=== PATIENT | female | born 1950 | race Caucasian/White ===

== ENCOUNTER 2021-09-30 08:09 | Inpatient (IN) ==
[2021-09-30] MEDS ORDERED: Artificial Tears SOLN 15 ML BOTTLE BOTH EYES PRN (12:56)
[2021-09-30] MEDS ORDERED: Naloxone 0.4 MG/ML INJ IVP PRN (12:56)
[2021-09-30] MEDS ORDERED: Perflutren Lipid Microsphere 1.3 ML in 0.9 % Sodium Chloride 8.7 ML IVP PRN (12:56)
[2021-09-30] MEDS ORDERED: Acetaminophen 325 MG TABLET PO PRN (12:56)
[2021-09-30] MEDS: FentaNYL (PF) 1,000 MCG/100 ML IV.SOLN IVC SCH (13:45)
[2021-09-30 13:47] LABS: ABG Base Excess 13 mEq/L (-2 to 3); ABG HCO3 36 mEq/L (21-27); ABG Oxygen Saturation 98 % (95-98); ABG PCO2 36 mmHg (35-45); ABG PH 7.61 pH Units (7.32-7.45); ABG PO2 88 mmHg (85-104); ABG TCO2 37 mEq/L (20-26); Blood Gas Modality ASSIST CONTROL; Blood Gas VT 450 cc
[2021-09-30] MEDS: Pantoprazole 40 MG VIAL IVP SCH (14:18)
[2021-09-30] MEDS ORDERED: *HR* Heparin 5,000 UNIT/ML VIAL IVP PRN ×2 (14:19)
[2021-09-30] MEDS: Dexmedetomidine HCl 400 MCG/100 ML MLS IVC SCH ×2 (14:23→22:25)
[2021-09-30 14:30] LABS: Red Cell Distribution Width 16.4 % (11.5-14.5)
[2021-09-30 14:32] LABS: Hematocrit 27.9 % (35.3-44.9); Hemoglobin 8.2 g/dL (11.5-15.4); Mean Corpuscular HGB Conc 29.4 g/dL (31.6-35.5); Mean Corpuscular Hemoglobin 24.8 pg (28.0-33.3); Mean Corpuscular Volume 84.5 fL (83.0-100.0); Mean Platelet Volume 9.4 fL (9.4-12.4); Platelet Count 242 K/mcL (140-400)
[2021-09-30 14:34] LABS: INR 1.5; Prothrombin Time 16.7 Seconds (9.4-12.1)
[2021-09-30 14:37] LABS: Activated Partial Thrombo Time 29.6 Seconds (26.0-36.0)
[2021-09-30 14:59] LABS: Albumin/Globulin Ratio 1.5 (1.1-2.2); Bilirubin,Direct 0.2 mg/dL (0.0-0.2); Bilirubin,Indirect 0.5 mg/dL (0.0-1.0); Bilirubin,Total 0.7 mg/dL (0.3-1.0); Calcium 8.3 mg/dL (8.6-10.3); Magnesium 1.7 mg/dL (1.6-2.6); Phosphorous 2.6 mg/dL (2.7-4.5); Potassium 3.3 mEq/L (3.5-5.1)
[2021-09-30 15:05] LABS: Hypochromasia Present (Not Present); Lymphocytes # 0.6 K/mcL (0.6-4.6); Monocytes # 0.6 K/mcL (0.0-1.3); Neutrophils # 28.8 K/mcL (1.6-8.9); Platelet Estimate Normal (Normal)
[2021-09-30 15:11] LABS: ABG Base Excess 13 mEq/L (-2 to 3); ABG HCO3 37 mEq/L (21-27); ABG Oxygen Saturation 99 % (95-98); ABG PCO2 42 mmHg (35-45); ABG PH 7.55 pH Units (7.32-7.45); ABG PO2 114 mmHg (85-104); ABG TCO2 38 mEq/L (20-26); Blood Gas Modality ASSIST CONTROL; Blood Gas VT 450 cc
[2021-09-30] MEDS: Heparin 25,000 UNIT/250 ML 25,000 UNIT/250 ML IV.SOLN IVC SCH (15:11)
[2021-09-30 15:59] LABS: Bilirubin,Urine Negative (Negative); Blood,Urine Large (Negative); Clarity,Urine Ex.Turbid (Clear); Color,Urine Yellow (Yellow); Glucose,Urine (UA) 30 mg/dL (Normal); Ketones,Urine Negative (Negative); Leukocyte Esterase,Urine Large (Negative); Nitrite,Urine Negative (Negative); Protein,Urine >=300 mg/dL (Neg-Trace); Specific Gravity,Urine 1.021 (1.010-1.025); Urobilinogen,Urine Normal (Normal)
[2021-09-30] MEDS ORDERED: *HR* Heparin 5,000 UNIT/ML VIAL SQ SCH (16:00)
[2021-09-30 16:25] LABS: Bacteria,Urine Many per hpf (None-Few); Renal Epithelial Cells,Urine Few per hpf (None-Few); Transitional Epi Cells,Urine Few per hpf (None-Few); WBC,Urine TNTC per hpf (0-3); Waxy Casts,Urine Few per lpf (None Seen)
[2021-09-30 16:26] LABS: Hyaline Casts,Urine Few per lpf (None Seen); Squamous Epithelial Cell,Urine Few per hpf (None-Few); White Blood Cell Casts,Urine Few per lpf (None Seen)
[2021-09-30 16:27] LABS: RBC,Urine 30-50 per hpf (0-3)
[2021-09-30] MEDS ORDERED: Vancomycin 1,750 MG in 0.9 % Sodium Chloride 250 ML IVPB SCH (17:00)
[2021-09-30] MEDS ORDERED: D5% in Water 1,000 ML IVC PRN (17:06)
[2021-09-30] MEDS ORDERED: Dextrose Gel 15 GM/37.5 ML TUBE PO PRN ×2 (17:06)
[2021-09-30] MEDS: Piperacillin/Tazobactam 3.375 GM in 0.9 % Sodium Chloride Mini Bag 100 ML IVPB SCH (17:12)
[2021-09-30] MEDS: Artificial Tears SOLN 15 ML BOTTLE BOTH EYES SCH ×2 (17:12→20:31)
[2021-09-30] MEDS: Insulin LISPRO 300 UNITS/3 ML VIAL SUBQ SCH (17:14)
[2021-09-30] MEDS ORDERED: Vancomycin 1,750 MG/517.5 ML IV.SOLN IVPB ONE (18:00)
[2021-09-30] MEDS: Albumin Human 5% 12.5 GM/250 ML IV.SOLN IVC SCH ×2 (18:31→22:23)
[2021-09-30] MEDS: Budesonide/Formoterol 160/4.5 1 PUFF INH IH SCH (20:17)
[2021-09-30] MEDS: Chlorhexidine Rinse 15 ML MOUTHWASH MM SCH (20:33)
[2021-09-30 21:59] LABS: Estimated Average Glucose 105 mg/dl; Hemoglobin A1C 5.3 %
[2021-10-01] MEDS: *HR* Dextrose 50 % in Water (Syg) 50 ML SYRINGE IVP PRN ×2 (01:34→20:50)
[2021-10-01] MEDS: Artificial Tears SOLN 15 ML BOTTLE BOTH EYES SCH ×7 (01:38→23:54)
[2021-10-01] MEDS: Piperacillin/Tazobactam 3.375 GM in 0.9 % Sodium Chloride Mini Bag 100 ML IVPB SCH ×4 (01:39→23:53)
[2021-10-01] MEDS: FentaNYL (PF) 1,000 MCG/100 ML IV.SOLN IVC SCH (02:07)
[2021-10-01 03:40] LABS: Basophils % 0.2 %; Eosinophils % 0.1 %; Hematocrit 24.5 % (35.3-44.9); Hemoglobin 7.5 g/dL (11.5-15.4); Immature Granulocytes % 1.4 % (0-4); Lymphocytes # 0.9 K/mcL (0.6-4.6); Lymphocytes % 4.2 %; Mean Corpuscular HGB Conc 30.6 g/dL (31.6-35.5); Mean Corpuscular Hemoglobin 25.2 pg (28.0-33.3); Mean Corpuscular Volume 82.2 fL (83.0-100.0); Mean Platelet Volume 9.5 fL (9.4-12.4); Monocytes # 1.2 K/mcL (0.0-1.3); Monocytes % 5.4 %; Neutrophils # 19.6 K/mcL (1.6-8.9); Platelet Count 206 K/mcL (140-400); Red Blood Count 2.98 M/mcL (3.82-4.97); Red Cell Distribution Width 16.7 % (11.5-14.5); Segmented Neutrophils % 88.7 %; White Blood Count 22.1 K/mcL (4.3-11.1)
[2021-10-01 03:55] LABS: Albumin/Globulin Ratio 1.7 (1.1-2.2); Bilirubin,Direct 0.3 mg/dL (0.0-0.2); Bilirubin,Indirect 0.7 mg/dL (0.0-1.0); Calcium 7.8 mg/dL (8.6-10.3); Globulin 1.8 g/dL (2.4-3.5); Magnesium 1.6 mg/dL (1.6-2.6); Phosphorous 2.9 mg/dL (2.7-4.5); Potassium 3.2 mEq/L (3.5-5.1); Total Protein 4.8 g/dL (6.4-8.9)
[2021-10-01 04:14] LABS: ABG Base Excess 14 mEq/L (-2 to 3); ABG HCO3 37 mEq/L (21-27); ABG Oxygen Saturation 98 % (95-98); ABG PCO2 41 mmHg (35-45); ABG PH 7.57 pH Units (7.32-7.45); ABG PO2 88 mmHg (85-104); ABG TCO2 38 mEq/L (20-26); Blood Gas VT 450 cc
[2021-10-01] MEDS ORDERED: Potassium Chloride Elixir 20 MEQ/15 ML UDC GTUBE ONE (04:56)
[2021-10-01] MEDS: Calcium Gluconate 1gm/50mL 1 GM/50 ML BAG IVPB SCH ×2 (05:12→05:39)
[2021-10-01] MEDS: Heparin 25,000 UNIT/250 ML 25,000 UNIT/250 ML IV.SOLN IVC SCH ×2 (06:06→08:11)
[2021-10-01] MEDS: Budesonide/Formoterol 160/4.5 1 PUFF INH IH SCH ×2 (07:31→20:39)
[2021-10-01] MEDS: Insulin LISPRO 300 UNITS/3 ML VIAL SUBQ SCH ×3 (08:11→16:46)
[2021-10-01] MEDS: Chlorhexidine Rinse 15 ML MOUTHWASH MM SCH ×2 (08:12→21:25)
[2021-10-01] MEDS: Pantoprazole 40 MG VIAL IVP SCH (08:13)
[2021-10-01 10:53] LABS: VBG Ionized Calcium 1.08 mmol/L (1.15-1.35)
[2021-10-01 11:04] LABS: Phosphorous 4.1 mg/dL (2.7-4.5); Potassium 4.3 mEq/L (3.5-5.1)
[2021-10-01] MEDS ORDERED: Calcium Gluconate 1gm/50mL 1 GM/50 ML BAG IVPB ONE (16:37)
[2021-10-01 22:55] LABS: Creatinine,Urine 71 mg/dL; Microalbumin,Urine > 1350 mg/L; Protein/Creatinine Ratio,Urine 6.99 mg/mg (0.00-0.20); Sodium, Urine 59.3 mEq/L
[2021-10-01] MEDS: Dexmedetomidine HCl 400 MCG/100 ML MLS IVC SCH (23:54)
[2021-10-02] MEDS: Artificial Tears SOLN 15 ML BOTTLE BOTH EYES SCH ×4 (03:11→16:07)
[2021-10-02 04:11] LABS: Basophils # 0.1 K/mcL (0.0-0.2); Basophils % 0.3 %; Eosinophils # 0.4 K/mcL (0.0-0.6); Eosinophils % 2.6 %; Hematocrit 24.8 % (35.3-44.9); Hemoglobin 7.2 g/dL (11.5-15.4); Immature Granulocytes % 0.4 % (0-4); Lymphocytes # 1.2 K/mcL (0.6-4.6); Lymphocytes % 7.2 %; Mean Corpuscular Hemoglobin 24.3 pg (28.0-33.3); Mean Corpuscular Volume 83.8 fL (83.0-100.0); Monocytes % 6.1 %; Neutrophils # 13.4 K/mcL (1.6-8.9); Platelet Count 187 K/mcL (140-400); Red Blood Count 2.96 M/mcL (3.82-4.97); Red Cell Distribution Width 17.2 % (11.5-14.5); Segmented Neutrophils % 83.4 %
[2021-10-02 04:34] LABS: Albumin 2.8 g/dL (3.5-5.7); Albumin/Globulin Ratio 1.4 (1.1-2.2); Bilirubin,Direct 0.2 mg/dL (0.0-0.2); Bilirubin,Indirect 0.3 mg/dL (0.0-1.0); Bilirubin,Total 0.5 mg/dL (0.3-1.0); Calcium 7.8 mg/dL (8.6-10.3); Magnesium 2.1 mg/dL (1.6-2.6); Phosphorous 5.8 mg/dL (2.7-4.5); Potassium 3.7 mEq/L (3.5-5.1); Total Protein 4.8 g/dL (6.4-8.9)
[2021-10-02] MEDS: Heparin 25,000 UNIT/250 ML 25,000 UNIT/250 ML IV.SOLN IVC SCH (08:12)
[2021-10-02] MEDS: Budesonide/Formoterol 160/4.5 1 PUFF INH IH SCH ×2 (08:27→19:54)
[2021-10-02] MEDS: Piperacillin/Tazobactam 3.375 GM in 0.9 % Sodium Chloride Mini Bag 100 ML IVPB SCH ×2 (08:42→16:08)
[2021-10-02] MEDS: Pantoprazole 40 MG VIAL IVP SCH (08:42)
[2021-10-02] MEDS: Chlorhexidine Rinse 15 ML MOUTHWASH MM SCH (08:42)
[2021-10-02] MEDS: Insulin LISPRO 300 UNITS/3 ML VIAL SUBQ SCH ×2 (08:44→12:17)
[2021-10-02 08:56] LABS: Magnesium 2.1 mg/dL (1.6-2.6)
[2021-10-02] MEDS ORDERED: Dextrose Gel 15 GM/37.5 ML TUBE PO PRN ×2 (18:38)
[2021-10-02] MEDS ORDERED: D5% in Water 1,000 ML IVC PRN (18:38)
[2021-10-02] MEDS ORDERED: Naloxone 0.4 MG/ML INJ IVP PRN (18:38)
[2021-10-02] MEDS ORDERED: *HR* Dextrose 50 % in Water (Syg) 50 ML SYRINGE IVP PRN (18:38)
[2021-10-02] MEDS: *HR* HYDROcodone/Acet 5/325 mg TABLET PO PRN (20:22)
[2021-10-02] MEDS: *HR* Heparin 5,000 UNIT/ML VIAL SQ SCH (20:43)
[2021-10-03] MEDS: Acetaminophen 325 MG TABLET PO PRN ×2 (00:07→17:04)
[2021-10-03] MEDS: Piperacillin/Tazobactam 3.375 GM in 0.9 % Sodium Chloride Mini Bag 100 ML IVPB SCH ×3 (00:08→16:51)
[2021-10-03 04:57] LABS: Basophils % 0.3 %; Eosinophils % 3.3 %; Red Cell Distribution Width 17.1 % (11.5-14.5)
[2021-10-03 04:59] LABS: Eosinophils # 0.4 K/mcL (0.0-0.6); Hematocrit 26.1 % (35.3-44.9); Hemoglobin 7.5 g/dL (11.5-15.4); Immature Granulocytes % 0.6 % (0-4); Lymphocytes # 1.2 K/mcL (0.6-4.6); Lymphocytes % 9.6 %; Mean Corpuscular HGB Conc 28.7 g/dL (31.6-35.5); Mean Corpuscular Hemoglobin 24.9 pg (28.0-33.3); Mean Corpuscular Volume 86.7 fL (83.0-100.0); Mean Platelet Volume 9.8 fL (9.4-12.4); Monocytes % 8.1 %; Neutrophils # 9.8 K/mcL (1.6-8.9); Platelet Count 176 K/mcL (140-400); Red Blood Count 3.01 M/mcL (3.82-4.97); Segmented Neutrophils % 78.1 %; White Blood Count 12.5 K/mcL (4.3-11.1)
[2021-10-03] MEDS: *HR* HYDROcodone/Acet 5/325 mg TABLET PO PRN ×3 (05:03→21:50)
[2021-10-03] MEDS: *HR* Heparin 5,000 UNIT/ML VIAL SQ SCH ×3 (05:05→21:43)
[2021-10-03 05:18] LABS: Albumin 2.9 g/dL (3.5-5.7); Albumin/Globulin Ratio 1.4 (1.1-2.2); Bilirubin,Direct 0.2 mg/dL (0.0-0.2); Bilirubin,Indirect 0.2 mg/dL (0.0-1.0); Bilirubin,Total 0.4 mg/dL (0.3-1.0); Calcium 7.6 mg/dL (8.6-10.3); Globulin 2.1 g/dL (2.4-3.5); Magnesium 2.1 mg/dL (1.6-2.6); Phosphorous 5.8 mg/dL (2.7-4.5); Potassium 3.5 mEq/L (3.5-5.1)
[2021-10-03] MEDS: Budesonide/Formoterol 160/4.5 1 PUFF INH IH SCH (07:41)
[2021-10-03] MEDS: Insulin LISPRO 300 UNITS/3 ML VIAL SUBQ SCH ×2 (08:15→11:50)
[2021-10-03] MEDS ORDERED: Calcium Chloride 1,000 MG in 0.9 % Sodium Chloride 100 ML IVPB ONE (08:41)
[2021-10-03] MEDS: carvediloL 25 MG TABLET PO SCH ×2 (09:00→16:51)
[2021-10-03] MEDS ORDERED: Pantoprazole 40 MG VIAL IVP SCH (09:00)
[2021-10-03] MEDS ORDERED: Calcium Gluconate 1gm/50mL 1 GM/50 ML BAG IVPB SCH (09:30)
[2021-10-03 11:29] LABS: Complement C3 114 mg/dL (87-200)
[2021-10-03] MEDS: Calcium Gluconate 1gm/50mL 1 GM/50 ML BAG IVPB SCH ×2 (11:59→13:03)
[2021-10-03] MEDS: MethylPREDNISolone 40 MG/ML VIAL IVP SCH ×2 (13:30→16:52)
[2021-10-03] MEDS: Ipratropium/Albuterol Neb 3 ML IH SCH ×2 (15:32→21:57)
[2021-10-04] MEDS: Ipratropium/Albuterol Neb 3 ML IH SCH ×4 (03:40→19:53)
[2021-10-04] MEDS: Piperacillin/Tazobactam 3.375 GM in 0.9 % Sodium Chloride Mini Bag 100 ML IVPB SCH ×3 (03:55→20:03)
[2021-10-04 05:23] LABS: Basophils % 0.1 %; Mean Corpuscular Volume 87.5 fL (83.0-100.0)
[2021-10-04 05:24] LABS: Hematocrit 29.4 % (35.3-44.9); Immature Granulocytes % 0.9 % (0-4); Lymphocytes # 0.6 K/mcL (0.6-4.6); Lymphocytes % 7.8 %; Mean Corpuscular HGB Conc 27.2 g/dL (31.6-35.5); Mean Corpuscular Hemoglobin 23.8 pg (28.0-33.3); Mean Platelet Volume 9.9 fL (9.4-12.4); Monocytes # 0.1 K/mcL (0.0-1.3); Monocytes % 1.2 %; Neutrophils # 7.2 K/mcL (1.6-8.9); Platelet Count 192 K/mcL (140-400); Red Blood Count 3.36 M/mcL (3.82-4.97); Red Cell Distribution Width 16.3 % (11.5-14.5)
[2021-10-04] MEDS: MethylPREDNISolone 40 MG/ML VIAL IVP SCH ×2 (05:35→17:50)
[2021-10-04] MEDS: *HR* Heparin 5,000 UNIT/ML VIAL SQ SCH ×3 (05:35→20:08)
[2021-10-04] MEDS: *HR* HYDROcodone/Acet 5/325 mg TABLET PO PRN (05:36)
[2021-10-04 05:43] LABS: Albumin 3.2 g/dL (3.5-5.7); Albumin/Globulin Ratio 1.3 (1.1-2.2); Bilirubin,Direct 0.1 mg/dL (0.0-0.2); Bilirubin,Indirect 0.3 mg/dL (0.0-1.0); Bilirubin,Total 0.4 mg/dL (0.3-1.0); Calcium 8.6 mg/dL (8.6-10.3); Globulin 2.4 g/dL (2.4-3.5); Magnesium 2.2 mg/dL (1.6-2.6); Phosphorous 5.4 mg/dL (2.7-4.5); Potassium 4.2 mEq/L (3.5-5.1); Total Protein 5.6 g/dL (6.4-8.9)
[2021-10-04 05:54] LABS: Hypochromasia Present (Not Present)
[2021-10-04 05:55] LABS: Platelet Estimate Normal (Normal)
[2021-10-04] MEDS: Venlafaxine XR (24 HR) 75 MG CAP.ER.24H PO SCH (08:44)
[2021-10-04] MEDS: carvediloL 25 MG TABLET PO SCH ×2 (08:44→17:50)
[2021-10-04] MEDS ORDERED: *HR* Metoprolol 5 MG/5 ML VIAL IVP ONE (19:23)
[2021-10-05] MEDS: Ipratropium/Albuterol Neb 3 ML IH SCH ×4 (04:01→20:48)
[2021-10-05] MEDS: Piperacillin/Tazobactam 3.375 GM in 0.9 % Sodium Chloride Mini Bag 100 ML IVPB SCH ×2 (04:06→12:18)
[2021-10-05] MEDS: *HR* Heparin 5,000 UNIT/ML VIAL SQ SCH ×3 (04:15→20:25)
[2021-10-05 04:31] LABS: Hemoglobin 8.1 g/dL (11.5-15.4)
[2021-10-05 04:32] LABS: Hematocrit 28.6 % (35.3-44.9); Mean Corpuscular HGB Conc 28.3 g/dL (31.6-35.5); Mean Corpuscular Volume 84.6 fL (83.0-100.0); Platelet Count 279 K/mcL (140-400); Red Blood Count 3.38 M/mcL (3.82-4.97); Red Cell Distribution Width 16.2 % (11.5-14.5); White Blood Count 10.1 K/mcL (4.3-11.1)
[2021-10-05 04:48] LABS: Calcium 8.8 mg/dL (8.6-10.3); Potassium 4.4 mEq/L (3.5-5.1)
[2021-10-05] MEDS: *HR* HYDROcodone/Acet 5/325 mg TABLET PO PRN ×2 (04:53→17:41)
[2021-10-05] MEDS: MethylPREDNISolone 40 MG/ML VIAL IVP SCH ×2 (04:55→17:38)
[2021-10-05] MEDS: carvediloL 25 MG TABLET PO SCH ×2 (08:51→17:37)
[2021-10-05] MEDS: NIFEdipine XL (24 HR) 30 MG TAB.ER.24 PO SCH (08:51)
[2021-10-05] MEDS: Venlafaxine XR (24 HR) 75 MG CAP.ER.24H PO SCH (08:51)
[2021-10-05] MEDS ORDERED: Furosemide 20 MG/2 ML VIAL IVP SCH (09:00)
[2021-10-05 13:50] LABS: Alpha 2 Globulin (PEP) 0.66 g/dL (0.48-1.05); Beta Globulin (PEP) 0.63 g/dL (0.48-1.10)
[2021-10-05 13:54] LABS: IFE Reflexed IFE Done; Immunoglobulin A 127 mg/dL (68-408); Immunoglobulin G 351 mg/dL (768-1632); Immunoglobulin M 34 mg/dL (35-263)
[2021-10-05] MEDS ORDERED: Oxymetazoline Nasal SPRAY BOTTLE 15ML NS PRN (22:16)
[2021-10-06 00:10] LABS: Lambda Qnt Free Light Chains 21.04 mg/L (5.71-26.30)
[2021-10-06 02:58] LABS: Hematocrit 27.1 % (35.3-44.9); Hemoglobin 7.9 g/dL (11.5-15.4); Mean Corpuscular HGB Conc 29.2 g/dL (31.6-35.5); Mean Corpuscular Hemoglobin 24.5 pg (28.0-33.3); Mean Corpuscular Volume 84.2 fL (83.0-100.0); Mean Platelet Volume 9.6 fL (9.4-12.4); Platelet Count 314 K/mcL (140-400); Red Blood Count 3.22 M/mcL (3.82-4.97); Red Cell Distribution Width 16.1 % (11.5-14.5); White Blood Count 10.4 K/mcL (4.3-11.1)
[2021-10-06 03:13] LABS: Calcium 8.7 mg/dL (8.6-10.3); Potassium 4.2 mEq/L (3.5-5.1)
[2021-10-06] MEDS: Ipratropium/Albuterol Neb 3 ML IH SCH ×4 (03:21→21:00)
[2021-10-06] MEDS: MethylPREDNISolone 40 MG/ML VIAL IVP SCH (05:01)
[2021-10-06] MEDS: *HR* Heparin 5,000 UNIT/ML VIAL SQ SCH (05:01)
[2021-10-06] MEDS: carvediloL 25 MG TABLET PO SCH ×2 (07:58→16:38)
[2021-10-06] MEDS: NIFEdipine XL (24 HR) 30 MG TAB.ER.24 PO SCH (07:58)
[2021-10-06] MEDS: *HR* HYDROcodone/Acet 5/325 mg TABLET PO PRN ×2 (07:58→16:38)
[2021-10-06] MEDS: Furosemide 20 MG/2 ML VIAL IVP SCH ×2 (07:59→19:49)
[2021-10-06] MEDS: Venlafaxine XR (24 HR) 75 MG CAP.ER.24H PO SCH (08:02)
[2021-10-06 08:25] LABS: Kappa Qnt Free Light Chains 24.65 mg/L (3.30-19.40)
[2021-10-07] MEDS: Ipratropium/Albuterol Neb 3 ML IH SCH ×4 (03:39→20:47)
[2021-10-07] MEDS: *HR* HYDROcodone/Acet 5/325 mg TABLET PO PRN ×2 (03:46→20:07)
[2021-10-07 06:36] LABS: Hemoglobin 7.5 g/dL (11.5-15.4); Red Cell Distribution Width 16.5 % (11.5-14.5)
[2021-10-07 06:37] LABS: Hematocrit 26.1 % (35.3-44.9); Mean Corpuscular HGB Conc 28.7 g/dL (31.6-35.5); Mean Corpuscular Hemoglobin 24.4 pg (28.0-33.3); Mean Corpuscular Volume 84.7 fL (83.0-100.0); Platelet Count 318 K/mcL (140-400); Red Blood Count 3.08 M/mcL (3.82-4.97); White Blood Count 11.9 K/mcL (4.3-11.1)
[2021-10-07 06:59] LABS: Calcium 8.4 mg/dL (8.6-10.3); Potassium 3.7 mEq/L (3.5-5.1)
[2021-10-07] MEDS: predniSONE 20 MG TABLET PO SCH (07:50)
[2021-10-07] MEDS: NIFEdipine XL (24 HR) 30 MG TAB.ER.24 PO SCH (07:50)
[2021-10-07] MEDS: Furosemide 20 MG TABLET PO SCH (07:50)
[2021-10-07] MEDS: carvediloL 25 MG TABLET PO SCH ×2 (07:50→17:03)
[2021-10-07] MEDS: Venlafaxine XR (24 HR) 75 MG CAP.ER.24H PO SCH (07:50)
[2021-10-07 08:16] LABS: ANA IgG by ELISA NONE DETECTED (None Detected)
[2021-10-07 08:58] LABS: ANCA IFA Titer <1:20 (<1:20)
[2021-10-07 10:22] LABS: ANCA IFA Pattern NONE DETECTED (None Detected); Serine Protease-3 Antibody 0 AU/mL (0-19)
[2021-10-07 10:26] LABS: VBG HCO3 39 mEq/L (21-27); VBG PCO2 61 mmHg (41-51); VBG PH 7.42 pH Units (7.32-7.42); VBG PO2 91 mmHg (25-50)
[2021-10-07] MEDS ORDERED: NIFEdipine XL (24 HR) 30 MG TAB.ER.24 PO ONE (10:34)
[2021-10-07] MEDS ORDERED: acetaZOLAMIDE 500 MG in Water for inj. (sterile) 5 ML IVP ONE (10:42)
[2021-10-07] MEDS: Piperacillin/Tazobactam 3.375 GM in 0.9 % Sodium Chloride Mini Bag 100 ML IVPB SCH ×2 (10:55→19:39)
[2021-10-07 13:31] LABS: INR 1.4; Prothrombin Time 15.1 Seconds (9.4-12.1)
[2021-10-07 14:19] LABS: Influenza A PCR Negative (Negative); Influenza B PCR Negative (Negative); Resp. Syncytial Virus PCR Negative (Negative)
[2021-10-07 15:03] LABS: SARS-CoV-2 by PCR (In House) Negative (Negative)
[2021-10-08] MEDS: Acetaminophen 325 MG TABLET PO PRN (02:28)
[2021-10-08] MEDS: Piperacillin/Tazobactam 3.375 GM in 0.9 % Sodium Chloride Mini Bag 100 ML IVPB SCH ×3 (03:42→19:56)
[2021-10-08] MEDS: Ipratropium/Albuterol Neb 3 ML IH SCH ×4 (03:52→21:08)
[2021-10-08 06:48] LABS: VBG HCO3 40 mEq/L (21-27); VBG PCO2 82 mmHg (41-51); VBG PH 7.29 pH Units (7.32-7.42); VBG PO2 28 mmHg (25-50)
[2021-10-08 06:48] LABS: Hematocrit 26.7 % (35.3-44.9); Hemoglobin 7.4 g/dL (11.5-15.4); Mean Corpuscular HGB Conc 27.7 g/dL (31.6-35.5); Red Cell Distribution Width 16.8 % (11.5-14.5)
[2021-10-08 06:49] LABS: Mean Corpuscular Hemoglobin 24.2 pg (28.0-33.3); Mean Corpuscular Volume 87.3 fL (83.0-100.0); Platelet Count 316 K/mcL (140-400); Red Blood Count 3.06 M/mcL (3.82-4.97)
[2021-10-08 07:20] LABS: Calcium 8.5 mg/dL (8.6-10.3); Potassium 3.9 mEq/L (3.5-5.1)
[2021-10-08] MEDS ORDERED: NIFEdipine XL (24 HR) 60 MG TAB.ER.24 PO SCH (09:00)
[2021-10-08] MEDS: carvediloL 25 MG TABLET PO SCH ×2 (09:22→18:40)
[2021-10-08] MEDS: Furosemide 20 MG TABLET PO SCH (09:22)
[2021-10-08] MEDS: predniSONE 20 MG TABLET PO SCH (09:22)
[2021-10-08] MEDS: Venlafaxine XR (24 HR) 75 MG CAP.ER.24H PO SCH (09:31)
[2021-10-08] MEDS ORDERED: Lidocaine -MPF 2% 5 ML VIAL ONE (09:56)
[2021-10-08] MEDS ORDERED: *HR* Succinylcholine 200 MG/10 ML VIAL IVP ONE (09:56)
[2021-10-08] MEDS ORDERED: Ondansetron 4 MG/2 ML VIAL ONE (09:56)
[2021-10-08] MEDS ORDERED: *HR* FentaNYL (PF) 100 MCG/2 ML VIAL ONE (09:58)
[2021-10-08] MEDS ORDERED: *HR* Propofol 200 MG/20 ML VIAL IVP ONE (09:58)
[2021-10-08] MEDS ORDERED: Lidocaine HCL 4 ML Topical Solution (Laryng-O-Jet Kit Sterile Pak) TP ONE (10:04)
[2021-10-08] MEDS ORDERED: *HR* Midazolam HCl 2 MG/2 ML VIAL ONE (10:26)
[2021-10-08 12:25] LABS: Source of Body Fluid LLL BAL
[2021-10-08] MEDS: *HR* HYDROcodone/Acet 5/325 mg TABLET PO PRN (12:44)
[2021-10-08] MEDS ORDERED: Naloxone 0.4 MG/ML INJ IVP PRN (12:57)
[2021-10-08] MEDS ORDERED: Acetaminophen 325 MG TABLET PO PRN (12:57)
[2021-10-08] MEDS ORDERED: *HR* HYDROcodone/Acet 5/325 mg TABLET PO PRN (12:57)
[2021-10-08] MEDS ORDERED: Oxymetazoline Nasal SPRAY BOTTLE 15ML NS PRN (12:57)
[2021-10-08] MEDS ORDERED: Oxymetazoline Nasal Spray Bottle 30ML NS PRN (13:30)
[2021-10-08 13:55] LABS: Appearance of Body Fluid Cloudy (Clear); Volume of Body Fluid 20 mL
[2021-10-08] MEDS: Mirtazapine 15 MG TABLET PO SCH (19:54)
[2021-10-09] MEDS: Ipratropium/Albuterol Neb 3 ML IH SCH ×4 (04:16→20:52)
[2021-10-09] MEDS: Piperacillin/Tazobactam 3.375 GM in 0.9 % Sodium Chloride Mini Bag 100 ML IVPB SCH ×3 (05:09→19:44)
[2021-10-09 08:34] LABS: Hematocrit 28.8 % (35.3-44.9); Hemoglobin 7.9 g/dL (11.5-15.4); Mean Corpuscular HGB Conc 27.4 g/dL (31.6-35.5); Mean Corpuscular Hemoglobin 23.9 pg (28.0-33.3); Mean Corpuscular Volume 87.3 fL (83.0-100.0); Mean Platelet Volume 8.9 fL (9.4-12.4); Platelet Count 340 K/mcL (140-400); Red Cell Distribution Width 17.2 % (11.5-14.5); White Blood Count 11.2 K/mcL (4.3-11.1)
[2021-10-09] MEDS ORDERED: Furosemide 20 MG TABLET PO SCH (09:00)
[2021-10-09 09:01] LABS: Calcium 8.6 mg/dL (8.6-10.3); Potassium 3.9 mEq/L (3.5-5.1)
[2021-10-09 09:27] LABS: VBG HCO3 39 mEq/L (21-27); VBG PCO2 87 mmHg (41-51); VBG PH 7.26 pH Units (7.32-7.42); VBG PO2 41 mmHg (25-50)
[2021-10-09] MEDS: carvediloL 25 MG TABLET PO SCH ×2 (10:11→16:26)
[2021-10-09] MEDS: NIFEdipine XL (24 HR) 60 MG TAB.ER.24 PO SCH (10:11)
[2021-10-09] MEDS: Venlafaxine XR (24 HR) 75 MG CAP.ER.24H PO SCH (10:11)
[2021-10-09] MEDS: predniSONE 20 MG TABLET PO SCH (10:12)
[2021-10-09] MEDS ORDERED: acetaZOLAMIDE 500 MG in Water for inj. (sterile) 5 ML IVP ONE (13:40)
[2021-10-09] MEDS: Pantoprazole 40 MG VIAL IVP SCH (16:25)
[2021-10-09 16:28] LABS: Hematocrit 27.7 % (35.3-44.9); Hemoglobin 7.6 g/dL (11.5-15.4)
[2021-10-09 16:28] LABS: INR 1.1; Prothrombin Time 12.1 Seconds (9.4-12.1)
[2021-10-09] MEDS: Mirtazapine 15 MG TABLET PO SCH (19:44)
[2021-10-09 21:08] LABS: Hematocrit 26.3 % (35.3-44.9); Hemoglobin 7.2 g/dL (11.5-15.4)
[2021-10-10] MEDS: Ipratropium/Albuterol Neb 3 ML IH SCH ×4 (03:45→20:49)
[2021-10-10] MEDS: Pantoprazole 40 MG VIAL IVP SCH ×2 (04:16→18:11)
[2021-10-10] MEDS: Piperacillin/Tazobactam 3.375 GM in 0.9 % Sodium Chloride Mini Bag 100 ML IVPB SCH ×3 (04:17→22:57)
[2021-10-10] MEDS: Venlafaxine XR (24 HR) 75 MG CAP.ER.24H PO SCH (08:19)
[2021-10-10] MEDS: NIFEdipine XL (24 HR) 60 MG TAB.ER.24 PO SCH (08:19)
[2021-10-10] MEDS: carvediloL 25 MG TABLET PO SCH ×2 (08:19→18:11)
[2021-10-10] MEDS: predniSONE 20 MG TABLET PO SCH (08:20)
[2021-10-10] MEDS ORDERED: acetaZOLAMIDE 500 MG in Water for inj. (sterile) 5 ML IVP ONE (09:00)
[2021-10-10 11:12] LABS: VBG HCO3 40 mEq/L (21-27); VBG PCO2 73 mmHg (41-51); VBG PH 7.34 pH Units (7.32-7.42); VBG PO2 171 mmHg (25-50)
[2021-10-10 11:40] LABS: Calcium 8.3 mg/dL (8.6-10.3); Potassium 4.1 mEq/L (3.5-5.1)
[2021-10-10 15:22] LABS: Eosinophils % 0.1 %; Hemoglobin 7.9 g/dL (11.5-15.4); Immature Granulocytes % 2.7 % (0-4)
[2021-10-10 15:23] LABS: Basophils % 0.2 %; Lymphocytes # 0.7 K/mcL (0.6-4.6); Lymphocytes % 5.5 %; Mean Corpuscular HGB Conc 27.2 g/dL (31.6-35.5); Mean Corpuscular Hemoglobin 24.8 pg (28.0-33.3); Mean Corpuscular Volume 90.9 fL (83.0-100.0); Mean Platelet Volume 9.7 fL (9.4-12.4); Monocytes # 0.3 K/mcL (0.0-1.3); Monocytes % 2.5 %; Neutrophils # 11.6 K/mcL (1.6-8.9); Nucleated Red Blood Cells 0.3 /100 WBC (0); Platelet Count 353 K/mcL (140-400); Red Blood Count 3.19 M/mcL (3.82-4.97); Red Cell Distribution Width 17.8 % (11.5-14.5)
[2021-10-10 16:49] LABS: Hypochromasia Present (Not Present)
[2021-10-10 16:50] LABS: Anisocytosis 1+ (Not Present); Basophilic Stippling 1+ (Not Present)
[2021-10-10 16:51] LABS: Ovalocytes 1+ (Not Present); Polychromasia 1+ (Not Present)
[2021-10-10 17:27] LABS: ABG Base Excess 10 mEq/L (-2 to 3); ABG HCO3 39 mEq/L (21-27); ABG Oxygen Saturation 76 % (95-98); ABG PCO2 80 mmHg (35-45); ABG PH 7.29 pH Units (7.32-7.45); ABG PO2 48 mmHg (85-104); ABG TCO2 41 mEq/L (20-26)
[2021-10-10] MEDS: Mirtazapine 15 MG TABLET PO SCH (20:01)
[2021-10-10 22:13] LABS: ABG Base Excess 15 mEq/L (-2 to 3); ABG HCO3 43 mEq/L (21-27); ABG Oxygen Saturation 90 % (95-98); ABG PCO2 88 mmHg (35-45); ABG PO2 70 mmHg (85-104); ABG TCO2 46 mEq/L (20-26)
[2021-10-11] MEDS ORDERED: *HR* LORazepam 2 MG/ML VIAL IVP ONE (03:18)
[2021-10-11 03:19] LABS: ABG Base Excess 13 mEq/L (-2 to 3); ABG HCO3 43 mEq/L (21-27); ABG Oxygen Saturation 84 % (95-98); ABG PCO2 93 mmHg (35-45); ABG PH 7.27 pH Units (7.32-7.45); ABG PO2 59 mmHg (85-104); ABG TCO2 46 mEq/L (20-26)
[2021-10-11] MEDS: Ipratropium/Albuterol Neb 3 ML IH SCH ×4 (04:01→19:54)
[2021-10-11] MEDS: Piperacillin/Tazobactam 3.375 GM in 0.9 % Sodium Chloride Mini Bag 100 ML IVPB SCH ×2 (06:02→14:58)
[2021-10-11] MEDS: Pantoprazole 40 MG VIAL IVP SCH ×2 (06:02→16:43)
[2021-10-11 06:38] LABS: VBG HCO3 36 mEq/L (21-27); VBG PCO2 56 mmHg (41-51); VBG PH 7.42 pH Units (7.32-7.42); VBG PO2 91 mmHg (25-50)
[2021-10-11 06:46] LABS: Calcium 8.5 mg/dL (8.6-10.3)
[2021-10-11] MEDS ORDERED: acetaZOLAMIDE 500 MG in Water for inj. (sterile) 5 ML IVP SCH (09:00)
[2021-10-11 12:19] LABS: ABG Base Excess 10 mEq/L (-2 to 3); ABG HCO3 38 mEq/L (21-27); ABG Oxygen Saturation 87 % (95-98); ABG PCO2 65 mmHg (35-45); ABG PH 7.37 pH Units (7.32-7.45); ABG PO2 56 mmHg (85-104); ABG TCO2 40 mEq/L (20-26); Blood Gas Modality BiLevel
[2021-10-11] MEDS: Venlafaxine XR (24 HR) 75 MG CAP.ER.24H PO SCH (12:24)
[2021-10-11] MEDS: NIFEdipine XL (24 HR) 60 MG TAB.ER.24 PO SCH (12:25)
[2021-10-11] MEDS: predniSONE 20 MG TABLET PO SCH (12:25)
[2021-10-11] MEDS: carvediloL 25 MG TABLET PO SCH ×3 (12:26→16:50)
[2021-10-11] MEDS ORDERED: *HR* LORazepam Oral Conc 2 MG/ML SL PRN (14:13)
[2021-10-11] MEDS: Morphine Sulfate Oral CONC 10 MG/0.5 ML ORAL.SYG SL PRN (14:43)
[2021-10-11] MEDS ORDERED: Atropine 1% Opth Drops 100 DROP/5 ML BOTTLE SL PRN (16:54)
[2021-10-11] MEDS: Mirtazapine 15 MG TABLET PO SCH (20:57)
[2021-10-12] MEDS: Morphine Sulfate Oral CONC 10 MG/0.5 ML ORAL.SYG SL PRN ×5 (00:55→22:54)
[2021-10-12] MEDS: Ipratropium/Albuterol Neb 3 ML IH SCH ×4 (03:53→20:20)
[2021-10-12] MEDS: Pantoprazole 40 MG VIAL IVP SCH ×2 (05:35→16:38)
[2021-10-12] MEDS: NIFEdipine XL (24 HR) 60 MG TAB.ER.24 PO SCH (08:30)
[2021-10-12] MEDS: carvediloL 25 MG TABLET PO SCH ×2 (08:30→18:06)
[2021-10-12] MEDS: Venlafaxine XR (24 HR) 75 MG CAP.ER.24H PO SCH (08:30)
[2021-10-12] MEDS ORDERED: Atropine 1% Opth Drops 100 DROP/5 ML BOTTLE SL PRN (14:06)
[2021-10-12] MEDS: Mirtazapine 15 MG TABLET PO SCH (22:56)
[2021-10-13] MEDS: Ipratropium/Albuterol Neb 3 ML IH SCH (03:43)
[2021-10-13] MEDS: Pantoprazole 40 MG VIAL IVP SCH (05:20)
[2021-10-13] MEDS: Morphine Sulfate Oral CONC 10 MG/0.5 ML ORAL.SYG SL PRN (06:49)
[2021-10-13 06:50] VITALS: BP 95/58; PULSE 95; TEMP 97.4; O2SAT 31
[2021-10-13] MEDS: carvediloL 25 MG TABLET PO SCH (07:07)
[2021-10-13] MEDS: NIFEdipine XL (24 HR) 60 MG TAB.ER.24 PO SCH (07:07)
[2021-10-13] MEDS: Venlafaxine XR (24 HR) 75 MG CAP.ER.24H PO SCH (07:07)
== END 2021-10-13 08:13 | disposition expired | DRG 987 ==
LOC: ICNU → SUATTDRO 12:56 → 2ANU 10-02 15:23 → ICNU 10-08 10:39 → 2ANU 10-08 14:45
PROVIDERS: ADMIT Pediatrics; ATTEND Internal Medicine
PROC: ENDOBRF (2021-10-08 11:35)